=== PATIENT | female | born 2000 | race Caucasian/White ===

== ENCOUNTER 2023-06-18 14:23 | Outpatient (REF) | payer BC, SELFPAY ==
[2023-06-21 10:09] LABS: Age Gdln ACOG Testing Note (.); IGP, rfx Aptima HPV ASCU Note (.)
== END 2023-06-18 14:24 | disposition home or self-care (01) ==
LOC: LAB 14:23
PROVIDERS: Visit Provider Physician Assistant
DX: Z01.419 Encounter for gynecological examination (general) (routine) without abnormal findings (principal)
CPT/HCPCS: G0145

== ENCOUNTER 2024-06-22 15:06 | Outpatient (REF) | payer BC, SELFPAY ==
[2024-06-24 13:08] LABS: Age Gdln ACOG Testing Note (.); IGP, rfx Aptima HPV ASCU Note (.)
== END 2024-06-22 15:07 | disposition home or self-care (01) ==
LOC: LAB 15:06
PROVIDERS: Visit Provider Physician Assistant
DX: Z01.419 Encounter for gynecological examination (general) (routine) without abnormal findings (principal)
CPT/HCPCS: 88175